=== PATIENT | male | born 1970 | race Caucasian/White ===

== ENCOUNTER 2024-07-14 09:05 | Observation (INO) | payer SELFPAY ==
[2024-07-14 09:47] LABS: PT Prothrombin Time 10.6 SECONDS (10-13.0); Protime INR 0.93
[2024-07-14] MEDS ORDERED: THIAMINE 200 MG/2 ML INJ ONE ×2 (09:48→10:43)
[2024-07-14] MEDS ORDERED: FOLIC ACID 5 MG/ML VIAL ONE (09:49)
[2024-07-14] MEDS ORDERED: NA CHLORIDE 0.9% 1,000 ML ONE (09:50)
[2024-07-14 10:03] LABS: ALT/SGPT 79 U/L (16-61); AST/SGOT 63 U/L (15-37); Albumin 4.1 g/dL (3.4-5.0); Alkaline Phosphatase 65 U/L (45-117); BUN Blood Urea Nitrogen 10 mg/dL (7-18); Bicarbonate 26 mEq/L (21-32); Bilirubin Total 0.2 mg/dL (0.2-1.0); Globulin 4.1 g/dL (2.3-3.5); Glomerular Filtration Rate 92 ml/min (=/>90); Glucose Level 119 mg/dL (74-106); Lipase 30 U/L (13-75); Magnesium 1.8 mg/dL (1.6-2.4); NT PRO-BNP 34 pg/mL (<125); Protein, Total 8.2 g/dL (6.4-8.2); Sodium Level 137 mEq/L (136-145); Troponin High Sensitivity 5.2 pg/mL (<58.9)
[2024-07-14 10:06] LABS: Bilirubin Direct < 0.2 mg/dL (0-0.2)
--- NOTE | 2024-07-14 10:06 | RAD REPORT ---
EXAMINATION: ONE VIEW CHEST XR CLINICAL INDICATION: Male, 53 years old.,CHEST PAIN TECHNIQUE: Frontal chest projection is submitted. Examination is limited by patient positioning and t echnique. COMPARISON: No prior exam. FINDINGS: The lungs are well inflated and clear apart from mild left basilar atelectasis. No pneumothorax or s izable effusion. The heart is normal in size. Mediastinal contours are unremarkable. Surgical clips in the left axilla and probably left breast. IMPRESSION: No acute intrathoracic abnormalities.
--- NOTE | 2024-07-14 10:10 | RAD REPORT ---
EXAM: CT Head Brain Wo Cont HISTORY: MENTAL STATUS CHANGE COMPARISON: None TECHNIQUE: Multiple contiguous axial images were obtained for a CT of the brain without contrast. Sag ittal and coronal reformats were performed. One or more of the following dose reduction techniques were used: Automated exposure control, adjus tment of the mA and kV according to patient size, and iterative reconstruction. Unless otherwise specified, incidental findings do not require dedicated imaging follow-up. FINDINGS: No evidence of hydrocephalus, intracranial hemorrhage, or extra-axial fluid collection. The brain is normal in morphology. The calvarium is intact. The visualized paranasal sinuses and mastoid air cells are essentially clear . IMPRESSION: No evidence of acute intracranial abnormality.
[2024-07-14 10:19] LABS: Absolute Eosinophils 0.2 K/uL (0-0.5); Absolute Lymphocytes (CBC) 0.7 K/uL (0.7-4.9); Absolute Monocytes 0.5 K/uL (0.1-1.3); Absolute Neutrophil 3.1 K/uL (1.8-8.0); Basophils % 0.7 % (0-1.3); Eosinophils % 4.6 % (0-4.4); Hematocrit 36.9 % (39.6-49.0); Hemoglobin 12.6 g/dL (13.6-17.9); MCH 30.3 pg (27.0-35.0); MCHC 34.2 g/dL (32.0-36.0); MCV 88.7 fL (80-100); MPV 7.3 fL (7.6-11.3); Monocytes % 10.7 % (3.3-12.3); Nucleated Red Blood Cells % 0.1 % (0-0); Platelets 140 thou/uL (152-406); RBC Red Blood Cell Count 4.16 M/uL (4.33-5.43); Red Cell Distribution Width 15.5 % (12.1-15.2)
--- NOTE | 2024-07-14 10:36 | EDPHYS ---
Physician Documentation [facility] Name: Mike Rodriges Age: 53 yrs Sex: Male : 1970 Arrival Date: 07/14/2024 Time: 09:05 Bed 3 Private MD: ED Physician Evans Mahajan HPI: 07/14 10:27 This 53 yrs old Male presents to ER via Ambulatory with complaints of Doesn't carmen Feel Right, Feeling lightheaded. 10:27 The patient or guardian reports chest pain that is located primarily in the substernal carmen area. Onset: 2 day(s) ago. The pain does not radiate. Associated signs and symptoms: Pertinent positives: dizziness, lightheadedness, nausea, shortness of breath. The chest pain is described as aching. Modifying factors: The symptoms are alleviated by nothing. the symptoms are aggravated by activity, movement. Severity of pain: At its worst the pain was mild in the emergency department the pain has resolved and did so just prior to arrival. The patient has experienced similar episodes in the past, a few times. Historical: - Allergies: 09:09 NKDA; aa5 - PMHx: 09:09 Hypertension; Anxiety; aa5 - PSHx: 09:09 Right leg; Back sx; aa5 - Immunization history:: Adult Immunizations unknown. - Infectious Disease History:: Denies. - Social history:: Smoking status: Patient denies any tobacco usage or history of. ROS: 10:28 Constitutional: Negative for fever, chills, and weight loss, Eyes: Negative for injury, carmen pain, redness, and discharge, ENT: Negative for injury, pain, and discharge, Neck: Negative for injury, pain, and swelling, Respiratory: Negative for shortness of breath, cough, wheezing, and pleuritic chest pain, Abdomen/GI: Negative for abdominal pain, nausea, vomiting, diarrhea, and constipation, Back: Negative for injury and pain, : Negative for injury, bleeding, discharge, and swelling, MS/Extremity: Negative for injury and deformity, Skin: Negative for injury, rash, and discoloration, Psych: Negative for depression, anxiety, suicide ideation, homicidal ideation, and hallucinations, Allergy/Immunology: Negative for hives, rash, and allergies, Endocrine: Negative for neck swelling, polydipsia, polyuria, polyphagia, and marked weight changes, 10:28 Cardiovascular: Positive for chest pain, palpitations, 10:28 Neuro: Positive for weakness, Exam: 10:28 Constitutional: This is a well developed, well nourished patient who is awake, alert, carmen and in no acute distress. Head/Face: Normocephalic, atraumatic. Eyes: Pupils equal round and reactive to light, extra-ocular motions intact. Lids and lashes normal. Conjunctiva and sclera are non-icteric and not injected. Cornea within normal limits. Periorbital areas with no swelling, redness, or edema. ENT: Nares patent. No nasal discharge, no septal abnormalities noted. Tympanic membranes are normal and external auditory canals are clear. Oropharynx with no redness, swelling, or masses, exudates, or evidence of obstruction, uvula midline. Mucous membranes moist. Neck: Trachea midline, no thyromegaly or masses palpated, and no cervical lymphadenopathy. Supple, full range of motion without nuchal rigidity, or vertebral point tenderness. No Meningismus. Chest/axilla: Normal chest wall appearance and motion. Nontender with no deformity. No lesions are appreciated. Respiratory: Lungs have equal breath sounds bilaterally, clear to auscultation and percussion. No rales, rhonchi or wheezes noted. No increased work of breathing, no retractions or nasal flaring. Abdomen/GI: Soft, non-tender, with normal bowel sounds. No distension or tympany. No guarding or rebound. No evidence of tenderness throughout. Back: No spinal tenderness. No costovertebral tenderness. Full range of motion. Male : Normal genitalia with no discharge or lesions. Skin: Warm, dry with normal turgor. Normal color with no rashes, no lesions, and no evidence of cellulitis. MS/ Extremity: Pulses equal, no cyanosis. Neurovascular intact. Full, normal range of motion., bilateral aka Neuro: Awake and alert, GCS 15, oriented to person, place, time, and situation. Cranial nerves II-XII grossly intact. Motor strength 5/5 in all extremities. Sensory grossly intact. Cerebellar exam normal. Normal gait. 10:28 Cardiovascular: Rate: tachycardic, actual rate is 104 bpm, Rhythm: regular, Pulses: no pulse deficits are appreciated, Heart sounds: normal, Edema: is not appreciated, JVD: is not appreciated, 10:28 ECG was reviewed by the Attending Physician. 10:28 Musculoskeletal/extremity: Extremities: all appear grossly normal, with no appreciated pain with palpation, ROM: no acute changes, intact in all extremities, full active range of motion, full passive range of motion, Circulation is intact in all extremities. Sensation intact. Compartment Syndrome exam of affected extremity: is normal. Weight bearing: able to fully bear weight, 10:28 Psych: Behavior/mood is anxious, Affect is calm, Oriented to person, place, time, Patient has no thoughts/intents to harm self or others. Judgement / Insight is normal. Memory is normal. Vital Signs: 09:09 BP 217 / 134; Pulse 106; Resp 18 S; Temp 97.5(TE); Pulse Ox 98% on R/A; Weight 86.18 kg aa5 (R); Height 5 ft. 11 in. (R); 10:13 BP 183 / 124; Pulse 104; Resp 17; Pulse Ox 97% on R/A; ap3 11:37 BP 169 / 98; Pulse 94; Pulse Ox 96% on R/A; ld1 09:09 Body Mass Index 26.50 (86.18 kg, 180.34 cm) aa5 NIH Stroke Scale Scores: 10:28 NIHSS Score: 0 carmen MDM: 09:10 Medical Screening Exam initiated carmen 10:32 Differential diagnosis: abnormal EKG, acute myocardial infarction, acute pericarditis, carmen anxiety, chest wall pain, congestive heart failure cholecystitis, Cholelithiasis costochondritis, esophagitis, gastritis, myocarditis, pancreatitis, peptic ulcer disease, pericarditis, pleurisy, pneumonia, pneumothorax, pulmonary embolus, stable angina, thoracic aortic disection, unstable angina. HEART Score: History: Slightly Suspicious (0), ECG: Non specific repolarization disturbance / LBTB / PM (1), Age: > 45 and < 65 years (1), Risk Factors: > or = 3 Risk factors for atherosclerotic disease (2), [Hypertension] [+ Family HX] Troponin: < or = 1 x Normal Limit (0), Total Score = 4. The patient was given aspirin in the Emergency Department. Data reviewed: vital signs, nurses notes, EMS record, lab test result(s), EKG, radiologic studies, plain films. Consideration of Admission/Observation Patient was admitted/placed on observation. Escalation of care including admission/observation considered. I considered the following discharge prescriptions or medication management in the emergency department Medications were administered in the Emergency Department. See MAR. Independent interpretation of the following test(s) in the Emergency Department EKG: See my EKG interpretation above. Test considered but Not performed: Ultrasound no 2 d echo. 07/14 09:12 Order name: Basic Metabolic Panel; Complete Time: 10: [facility] 07/14 09:12 Order name: CBC with Diff; Complete Time: : [facility] 07/14 09:12 Order name: LFT's; Complete Time: : [facility] 07/14 09:12 Order name: Magnesium; Complete Time: : [facility] 07/14 09:12 Order name: NT PRO-BNP; Complete Time: : [facility] 07/14 09:12 Order name: PT-INR; Complete Time: : [facility] 07/14 09:12 Order name: Troponin HS; Complete Time: : [facility] 07/14 09:12 Order name: Lipase; Complete Time: : [facility] 07/14 09:12 Order name: Urinalysis w/ reflexes [facility] 07/14 09:12 Order name: UDS [facility] 07/14 11:36 Order name: Thyroid Stimulating Hormone [facility] 07/14 11:36 Order name: CBC with Automated Diff [facility] 07/14 11:36 Order name: CBC with Automated Diff [facility] 07/14 11:36 Order name: CBC with Automated Diff [facility] 07/14 11:36 Order name: CBC with Automated Diff [facility] 07/14 11:36 Order name: Comprehensive Metabolic Panel [facility] 07/14 11:36 Order name: Comprehensive Metabolic Panel [facility] 07/14 11:36 Order name: Comprehensive Metabolic Panel [facility] 07/14 11:36 Order name: Comprehensive Metabolic Panel [facility] 07/14 11:36 Order name: Creatine Phosphokinase [facility] 07/14 11:36 Order name: Creatine Phosphokinase [facility] 07/14 11:36 Order name: Troponin High Sensitivity [facility] 07/14 11:36 Order name: Troponin High Sensitivity [facility] 07/14 11:36 Order name: Troponin High Sensitivity [facility] 07/14 09:12 Order name: XRAY Chest (1 view); Complete Time: 10: [facility] 07/14 09:12 Order name: CT Head Brain wo Cont; Complete Time: 10: [facility] 07/14 10:58 Order name: Echo with Doppler [facility] 07/14 09:12 Order name: Cardiac monitoring; Complete Time: 09:37 [facility] 07/14 09:12 Order name: EKG - Nurse/Tech; Complete Time: 09:37 [facility] 07/14 09:12 Order name: IV Saline Lock; Complete Time: 09:37 [facility] 07/14 09:12 Order name: Labs collected and sent; Complete Time: 09: [facility] 07/14 09:12 Order name: O2 Per Protocol; Complete Time: 09:37 [facility] 07/14 09:12 Order name: O2 Sat Monitoring; Complete Time: 09:37 [facility] 07/14 09:53 Order name: Labs - recollect needed: recollect the purple top; Complete Time: 10:10 eb EC:28 Rate is 103 beats/min. Rhythm is regular. QRS [place] is Normal. TN interval is normal. carmen QRS interval is normal. QT interval is normal. No Q waves. T waves are Normal. No ST changes noted. Clinical impression: Sinus tachycardia. Interpreted by me. Reviewed by me. Administered Medications: 10:10 Drug: NS 0.9% IV 500 ml 500 ml IV at 1 bolus once; to be given as a bolus over 30 ap3 minutes Volume: 500 ml; Route: IV; Rate: 1 bolus; Site: left antecubital; 11:40 Follow up: IV Status: Completed infusion; IV Intake: 500ml ap3 10:10 Drug: foLIC Acid IVPB 1 mg IVPB once Route: IVPB; Site: left antecubital; ap3 11:40 Follow up: IV Status: Completed infusion ap3 10:10 Drug: Thiamine IV 100 mg IV at per protocol once Route: IV; Rate: per protocol; Site: ap3 left antecubital; 11:40 Follow up: IV Status: Completed infusion ap3 10:52 Drug: Thiamine IV 100 mg IV at bolus once Route: IV; Rate: bolus; Site: left ld1 antecubital; 11:03 Follow up: Response: No adverse reaction; IV Status: Completed infusion ap3 10:52 Drug: Labetalol IV 20 mg IV at per protocol once over 2 mins Route: IV; Rate: per ld1 protocol; Infused Over: 2 mins; Site: left antecubital; 11:03 Follow up: Response: No adverse reaction; Blood pressure is lowered ap3 11:41 Follow up: Response: No adverse reaction; Blood pressure is lowered; IV Status: ap3 Completed infusion 10:52 Drug: Labetalol PO 100 mg PO once Route: PO; ld1 11:04 Follow up: Response: No adverse reaction ap3 10:52 Drug: Famotidine IVP 20 mg IVP once; dilute with 10 mL 0.9% NaCl; give over 2 minutes ld1 Route: IVP; Site: left antecubital; 11:03 Follow up: Response: No adverse reaction ap3 10:52 Drug: Magnesium Sulfate IVPB 2 grams IVPB once over 2 hrs Route: IVPB; Infused Over: 2 ld1 hrs; Site: left antecubital; 14:22 Follow up: IV Status: Completed infusion ap3 10:52 Drug: Norvasc PO 10 mg PO once Route: PO; ld1 11:03 Follow up: Response: No adverse reaction ap3 10:52 Drug: Aspirin PO Chewable Tablet 162 mg PO once Route: PO; ld1 11:03 Follow up: Response: No adverse reaction ap3 11:01 Drug: Ativan IVP 2 mg IVP once Route: IVP; Site: left antecubital; ap3 14:22 Follow up: Response: No adverse reaction; Anxiety decreased ap3 14:23 Not Given (banana bag orderedd): ns 0.9% 500 ml 500 ml IV at 125 ml/hr once; to be ap3 given as a bolus over 30 minutes 14:25 Not Given ([employer] orderss): [id number] mg IV at per protocol once ap3 14:37 Drug: Banana Bag - (Multivitamin IV 1 amp, NS 0.9% IV 1000 ml, Thiamine IV 100 mg, ap3 foLIC Acid IVPB 1 mg) IV at 125 ml/hr once Route: IV; Rate: 125 ml/hr; Site: left antecubital; 14:53 Follow up: IV Status: Infusion continued upon admission ap3 Disposition Summary: 07/14/24 10:35 Hospitalization Ordered Notes: Hospitalization Status: Observation carmen Provider: Mo Beltran carmen Condition: Fair carmen Problem: new carmen Symptoms: have improved carmen Bed/Room Type: Standard carmen Location: Telemetry/MedSurg (observation)(07/14/24 15:55) eb Room Assignment: 405(07/14/24 16:07) eb Diagnosis - Chest pain, unspecified carmen - Alcohol abuse carmen - Essential (primary) hypertension carmen - Dizziness and giddiness carmen Forms: - Medication Reconciliation Form carmen - SBAR form carmen - Leadership Thank You Letter carmen NIH Stroke Scale - NIH Stroke Score Date: 07/14/2024 Time: 10:28 Total Score = 0 10. Dysarthria (speech clarity - read or repeat words) - 0(Normal) 11. Extinction and Inattention (visual/tactile/auditory/spatial/personal) - 0(No abnormality) 1a. Level of Consciousness (LOC) - 0(Alert) 1b. Level of Consciousness (LOC) (Month \T\ Age) - 0(Both) 1c. LOC Commands (Open \T\ Closes Eyes/Office Messenger) - 0(Both) 2. Best Gaze (Lateral Gaze Paresis) - 0(Normal) 3. Visual Field Loss - 0(No visual loss) 4. Facial Palsy - 0(Normal) 5a. Left Arm: Motor (10-second hold) - 0(No drift) 5b. Right Arm: Motor (10-second hold) - 0(No drift) 6a. Left Leg: Motor (5-second hold - always test supine) - 0(No drift) 6b. Right Leg: Motor (5-second hold - always test supine) - 0(No drift) 7. Limb Ataxia (finger/nose \T\ heel/barros - test with eyes open) - 0(Absent) 8. Sensory Loss (pinprick arms/legs/face) - 0(Normal) 9. Best Language: Aphasia (description/naming/reading) - 0(No aphasia) Initials: carmen Signatures: Dispatcher [employer] EDMS Evans Mahajan MD MD cha Calderon, Audri, RN RN aa5 Lenora Limon RN RN ap3 Jennifer Rivero Lauren, RN RN ld1 Corrections: (The following items were deleted from the chart) 09:13 09:13 BASIC METABOLIC PANEL+C.LAB.BRZ ordered. EDMS EDMS 09:13 09:13 CBC+H.LAB.BRZ ordered. EDMS EDMS 09:13 09:13 HEPATIC FUNCTION+C.LAB.BRZ ordered. EDMS EDMS 09:13 09:13 MAGNESIUM+C.LAB.BRZ ordered. EDMS EDMS 09:13 09:13 PROBNP+C.LAB.BRZ ordered. EDMS EDMS 09:13 09:13 PROTIME (+INR)+COAG.LAB.BRZ ordered. EDMS EDMS 09:13 09:13 Troponin High Sensitivity+C.LAB.BRZ ordered. EDMS EDMS 09:13 09:13 LIPASE+C.LAB.BRZ ordered. EDMS EDMS 09:13 09:13 Urinalysis+U.LAB.BRZ ordered. EDMS EDMS 09:13 09:13 URINE DRUG SCREEN+UC.LAB.BRZ ordered. EDMS EDMS 09:13 09:13 Chest Single View+RAD.RAD.BRZ ordered. EDMS EDMS 09:13 09:13 Head Brain Wo Cont+CT.RAD.BRZ ordered. EDMS EDMS 12:58 10:35 Telemetry/MedSurg (observation) carmen eb 12:58 10:35 carmen eb 15:55 12:58 BR ER HOLD eb eb 15:55 12:58 ERHOLD- eb eb 16:07 15:55 420 eb eb
--- NOTE | 2024-07-14 10:36 | ER ---
Nurse's Notes [facility] Name: Mike Rodriges Age: 53 yrs Sex: Male : 1970 Arrival Date: 07/14/2024 Time: 09:05 Bed 3 Private MD: Diagnosis: Chest pain, unspecified;Alcohol abuse;Essential (primary) hypertension;Dizziness and giddiness Presentation: 07/14 09:09 Chief complaint: Patient states: sent here by PCP, pt states "I just feel like I am aa5 going to pass out", pt reports nausea. 09:09 Coronavirus screen: nausea. Ebola Screen: Patient denies travel to an Ebola-affected [facility] area in the 21 days before illness onset. Initial Sepsis Screen: Does the patient meet any 2 criteria? HR > 90 bpm. Does the patient have a suspected source of infection? No. Patient's initial sepsis screen is negative. Risk Assessment: Do you want to hurt yourself or someone else? Patient reports no desire to harm self or others. Onset of symptoms was July 2024. 09:09 Acuity: ERICK 2 aa5 09:09 Method Of Arrival: Ambulatory aa5 Historical: - Allergies: 09:09 NKDA; aa5 - PMHx: 09:09 Hypertension; Anxiety; aa5 - PSHx: 09:09 Right leg; Back sx; aa5 - Immunization history:: Adult Immunizations unknown. - Infectious Disease History:: Denies. - Social history:: Smoking status: Patient denies any tobacco usage or history of. Screenin:44 Abuse screen: Denies threats or abuse. Nutritional screening: No deficits noted. ap3 Tuberculosis screening: No symptoms or risk factors identified. 14:21 [facility] ED Fall Risk Assessment (Adult) History of falling in the last 3 months, ap3 including since admission Yes- single mechanical fall (1 pt) Confusion or Disorientation No (0 pts) Intoxicated or Sedated No (0 pts) Impaired Gait Yes (1 pt) Mobility Assist Device Used No (0 pt) Altered Elimination No (0 pt) Score/Fall Risk Level 0 - 2 = Low Risk Oriented to surroundings, Maintained a safe environment, Educated pt \\T\\ family on fall prevention, incl call for assistance when getting out of bed, Assessed \\T\\ reinforced patient's understanding of fall precautions, Hourly rounding (assess needs \\T\\ fall precautionary measures) done, Used ambulatory aids as needed (educated on \\T\\ assisted with). Assessment: 09:42 General: Appears comfortable, Behavior is cooperative, appropriate for age, anxious. ap3 Pain: Denies pain. Neuro: Level of Consciousness is awake, alert, obeys commands, Oriented to person, place, time, situation, Appropriate for age. Cardiovascular: Reports "feeling like my heart is going to beat out of my chest". Respiratory: Airway is patent Respiratory effort is even, unlabored, Respiratory pattern is regular, symmetrical. Vital Signs: 09:09 BP 217 / 134; Pulse 106; Resp 18 S; Temp 97.5(TE); Pulse Ox 98% on R/A; Weight 86.18 kg aa5 (R); Height 5 ft. 11 in. (R); 10:13 BP 183 / 124; Pulse 104; Resp 17; Pulse Ox 97% on R/A; ap3 11:37 BP 169 / 98; Pulse 94; Pulse Ox 96% on R/A; ld1 09:09 Body Mass Index 26.50 (86.18 kg, 180.34 cm) aa5 NIH Stroke Scale Scores: 10:28 NIHSS Score: 0 [facility] ED Course: 09:08 Patient arrived in ED. cj3 09:09 Arm band placed on Patient placed in an exam room, on a stretcher. aa5 09:10 Evans Mahajan MD is Attending Physician. [facility] 09:21 Triage completed. aa5 09:36 Lenora Limon, RN is Primary Nurse. ap3 09:36 Initial lab(s) drawn, by [facility], sent to lab. EKG done, by ED staff, reviewed by Evans Mahajan MD. Inserted saline lock: 20 gauge in left antecubital area, using aseptic technique. Blood collected. Flushed with 10 mL NS. 09:37 Patient has correct armband on for positive identification. Placed in gown. Bed in low ap3 position. Call light in reach. Side rails up X2. Client placed on continuous cardiac and pulse oximetry monitoring. NIBP monitoring applied. rn document improvement on. Pulse ox on. NIBP on. Door closed. Noise minimized. Warm blanket given. 09:50 XRAY Chest (1 view) In Process Unspecified. EDMS 10:02 CT Head Brain wo Cont In Process Unspecified. EDMS 10:34 Mo Beltran MD is Hospitalizing Provider. [facility] 14:21 Provided Education on: need for admission. ap3 14:21 No provider procedures requiring assistance completed. Patient admitted, IV remains in ap3 place. Administered Medications: 10:10 Drug: NS 0.9% IV 500 ml 500 ml IV at 1 bolus once; to be given as a bolus over 30 ap3 minutes Volume: 500 ml; Route: IV; Rate: 1 bolus; Site: left antecubital; 11:40 Follow up: IV Status: Completed infusion; IV Intake: 500ml ap3 10:10 Drug: foLIC Acid IVPB 1 mg IVPB once Route: IVPB; Site: left antecubital; ap3 11:40 Follow up: IV Status: Completed infusion ap3 10:10 Drug: Thiamine IV 100 mg IV at per protocol once Route: IV; Rate: per protocol; Site: ap3 left antecubital; 11:40 Follow up: IV Status: Completed infusion ap3 10:52 Drug: Thiamine IV 100 mg IV at bolus once Route: IV; Rate: bolus; Site: left ld1 antecubital; 11:03 Follow up: Response: No adverse reaction; IV Status: Completed infusion ap3 10:52 Drug: Labetalol IV 20 mg IV at per protocol once over 2 mins Route: IV; Rate: per ld1 protocol; Infused Over: 2 mins; Site: left antecubital; 11:03 Follow up: Response: No adverse reaction; Blood pressure is lowered ap3 11:41 Follow up: Response: No adverse reaction; Blood pressure is lowered; IV Status: ap3 Completed infusion 10:52 Drug: Labetalol PO 100 mg PO once Route: PO; ld1 11:04 Follow up: Response: No adverse reaction ap3 10:52 Drug: Famotidine IVP 20 mg IVP once; dilute with 10 mL 0.9% NaCl; give over 2 minutes ld1 Route: IVP; Site: left antecubital; 11:03 Follow up: Response: No adverse reaction ap3 10:52 Drug: Magnesium Sulfate IVPB 2 grams IVPB once over 2 hrs Route: IVPB; Infused Over: 2 ld1 hrs; Site: left antecubital; 14:22 Follow up: IV Status: Completed infusion ap3 10:52 Drug: Norvasc PO 10 mg PO once Route: PO; ld1 11:03 Follow up: Response: No adverse reaction ap3 10:52 Drug: Aspirin PO Chewable Tablet 162 mg PO once Route: PO; ld1 11:03 Follow up: Response: No adverse reaction ap3 11:01 Drug: Ativan IVP 2 mg IVP once Route: IVP; Site: left antecubital; ap3 14:22 Follow up: Response: No adverse reaction; Anxiety decreased ap3 14:23 Not Given (Ateoana bag orderedd): ns 0.9% 500 ml 500 ml IV at 125 ml/hr once; to be ap3 given as a bolus over 30 minutes 14:25 Not Given ([employer] orderss): [id number] mg IV at per protocol once ap3 14:37 Drug: Banana Bag - (Multivitamin IV 1 amp, NS 0.9% IV 1000 ml, Thiamine IV 100 mg, ap3 foLIC Acid IVPB 1 mg) IV at 125 ml/hr once Route: IV; Rate: 125 ml/hr; Site: left antecubital; 14:53 Follow up: IV Status: Infusion continued upon admission ap3 Medication: 14:22 VIS not applicable for this client. ap3 Intake: 11:40 IV: 500ml; Total: 500ml. ap3 Outcome: 10:35 Decision to Hospitalize by Provider. carmen 14:21 Admitted to ER Hold. Please see [employer] for further documentation. ap3 14:21 Condition: good 14:21 Discharge instructions given to patient, Instructed on the need for admit, 16:31 Patient left the ED. ld1 NIH Stroke Scale - NIH Stroke Score Date: 07/14/2024 Time: 10:28 Total Score = 0 10. Dysarthria (speech clarity - read or repeat words) - 0(Normal) 11. Extinction and Inattention (visual/tactile/auditory/spatial/personal) - 0(No abnormality) 1a. Level of Consciousness (LOC) - 0(Alert) 1b. Level of Consciousness (LOC) (Month \\T\\ Age) - 0(Both) 1c. LOC Commands (Open \\T\\ Closes Eyes/Grid Molder) - 0(Both) 2. Best Gaze (Lateral Gaze Paresis) - 0(Normal) 3. Visual Field Loss - 0(No visual loss) 4. Facial Palsy - 0(Normal) 5a. Left Arm: Motor (10-second hold) - 0(No drift) 5b. Right Arm: Motor (10-second hold) - 0(No drift) 6a. Left Leg: Motor (5-second hold - always test supine) - 0(No drift) 6b. Right Leg: Motor (5-second hold - always test supine) - 0(No drift) 7. Limb Ataxia (finger/nose \\T\\ heel/barros - test with eyes open) - 0(Absent) 8. Sensory Loss (pinprick arms/legs/face) - 0(Normal) 9. Best Language: Aphasia (description/naming/reading) - 0(No aphasia) Initials: carmen Signatures: Dispatcher [employer] Evans Chaidez MD MD cha Calderon, Audri, RN RN aa5 Lenora Limon RN RN ap3 Ines Parker RN RN ld1 Shakila Porter 3
[2024-07-14] MEDS ORDERED: LORazepam 2 MG/ML VIAL ONE (10:42)
[2024-07-14] MEDS ORDERED: LABETALOL HCL 100 MG TAB ONE (10:42)
[2024-07-14] MEDS ORDERED: AMLODIPINE 10 MG TAB ONE (10:43)
[2024-07-14] MEDS ORDERED: ASPIRIN 81 MG CHEWABLE TABLET ONE (10:43)
[2024-07-14] MEDS ORDERED: LABETALOL 20 MG/4ML SYRINGE IV ONE (10:43)
[2024-07-14] MEDS ORDERED: FAMOTIDINE 20 MG/2 ML VIAL IV ONE (10:43)
[2024-07-14] MEDS ORDERED: Magnesium Sulfate 2gm IVPB 2 G/50 ML BAG IV ONE (10:44)
[2024-07-14] MEDS ORDERED: LORazepam 2 MG/ML VIAL IV PRN (11:29)
[2024-07-14] MEDS ORDERED: ONDANSETRON 4 MG/2 ML VIAL IV PRN (11:29)
[2024-07-14] MEDS: ENOXAPARIN 40 MG/0.4 ML SQ SCH (12:00)
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
--- NOTE | 2024-07-14 13:27 | ECHO ---
HEIGHT: 5 ft 11 in WEIGHT: 189 lb 15.91 oz DATE OF STUDY: 07/14/[address]: Mart Dennis NP 2-DIMENSIONAL: YES M.MODE: YES DOPPLER: YES COLOR FLOW: YES TDS: PORTABLE: YES DEFINITY: BUBBLE STUDY: DIAGNOSIS: HYPERTENSION URGENCY CARDIAC HISTORY: CATHERIZATION: NO SURGERY: NO PROSTHETIC VALVE: NO PACEMAKER: NO MEASUREMENTS (cm) DIASTOLIC (NORMALS) SYSTOLIC (NORMALS) IVSd 0.9 (0.6-1.2) LA Diam 3.0 (1.9-4.0) LVEF 60-65% LVIDd 4.1 (3.5-5.7) LVIDs 2.6 (2.0-3.5) %FS 37% LVPWd 1.0 (0.6-1.2) Ao Diam 2.7 (2.0-3.7) 2 DIMENSIONAL ASSESSMENT: RIGHT ATRIUM: NORMAL LEFT ATRIUM: NORMAL RIGHT VENTRICLE: NORMAL LEFT VENTRICLE: NORMAL TRICUSPID VALVE: NORMAL MITRAL VALVE: NORMAL PULMONIC VALVE: NORMAL AORTIC VALVE: NORMAL PERICARDIAL EFFUSION: NONE AORTIC ROOT: NORMAL LEFT VENTRICULAR WALL MOTION: NORMAL DOPPLER/COLOR FLOW: NORMAL COMMENTS: 1. NORMAL LEFT VENTRICULAR SYSTOLIC FUNCTION, EJECTION FRACTION 60-65%, NORMAL WALL MOTION 2. NORMAL DIASTOLIC FUNCTION TECHNOLOGIST: RON DANIELLE
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
[2024-07-14 14:04] VITALS: BMI 26.4
[2024-07-14] MEDS: FOLIC ACID 1 MG, MULTIVITAMINS INJ 10 ML, THIAMINE HCL 100 MG in NA CHLORIDE 0.9% 1,000 ML IV ONE (14:16)
[2024-07-14] MEDS ORDERED: ENOXAPARIN 40 MG/0.4 ML SQ ONE (15:35)
[2024-07-14] MEDS: METOPROLOL TAR 25 MG TAB PO SCH (18:03)
[2024-07-14] MEDS: ALPRAZOLAM 0.5 MG TABLET PO PRN (18:03)
[2024-07-14 18:39] LABS: Specific Gravity 1.014 (1.005-1.030); Urine Bilirubin NEGATIVE (Negative); Urine Blood Negative (Negative); Urine Clarity Clear (Clear); Urine Color Colorless (Yellow); Urine Glucose NEGATIVE (Negative); Urine Ketones NEGATIVE (Negative); Urine Microscopic Reflex YN NO UMIC; Urine Nitrite NEGATIVE (Negative); Urine Protein NEGATIVE (Negative); Urine Urobilinogen Normal (Normal); Urine pH 6.5 (5.0-7.0)
[2024-07-14 18:52] LABS: Barbiturates NEGATIVE (NEGATIVE); Benzodiazepines POSITIVE (NEGATIVE); Cocaine NEGATIVE (NEGATIVE); METHAMPHETAM NEGATIVE (NEGATIVE); Methadone NEGATIVE (NEGATIVE); Opiates NEGATIVE (NEGATIVE); Phencyclidine NEGATIVE (NEGATIVE); THC Cannibis NEGATIVE (NEGATIVE)
[2024-07-14] MEDS: ACETAMINOPHEN 325 MG TABLET PO PRN (22:47)
[2024-07-14] MEDS: HYDRALAZINE HCL 20 MG/ML VIAL IV PRN (23:38)
[2024-07-15 01:46] VITALS: O2SAT 97
[2024-07-15 07:00] LABS: Absolute Eosinophils 0.5 K/uL (0-0.5); Absolute Lymphocytes (CBC) 0.9 K/uL (0.7-4.9); Absolute Monocytes 0.6 K/uL (0.1-1.3); Absolute Neutrophil 3.8 K/uL (1.8-8.0); Basophils % 0.8 % (0-1.3); Eosinophils % 8.1 % (0-4.4); Hematocrit 38.8 % (39.6-49.0); Hemoglobin 13.4 g/dL (13.6-17.9); Lymphocytes % 15.4 % (15.3-44.8); MCH 30.5 pg (27.0-35.0); MCHC 34.5 g/dL (32.0-36.0); MCV 88.4 fL (80-100); Monocytes % 11.1 % (3.3-12.3); Neutrophils % 64.6 % (41.7-73.7); Platelets 144 thou/uL (152-406); RBC Red Blood Cell Count 4.39 M/uL (4.33-5.43); Red Cell Distribution Width 15.4 % (12.1-15.2)
[2024-07-15 07:21] LABS: Albumin 3.7 g/dL (3.4-5.0); Anion Gap 12.5 mEq/L (5.0-15.0); Bilirubin Total 0.7 mg/dL (0.2-1.0); Globulin 3.7 g/dL (2.3-3.5); Potassium 3.5 mEq/L (3.5-5.1); Protein, Total 7.4 g/dL (6.4-8.2); Troponin High Sensitivity 5.6 pg/mL (<58.9)
[2024-07-15 07:24] LABS: Thyroid Stimulating Hormone 6.26 uIU/mL (0.358-3.740)
[2024-07-15] MEDS: AMLODIPINE 10 MG TAB PO SCH (08:34)
[2024-07-15] MEDS: LOSARTAN POTASSIUM 50 MG TABLET PO SCH (08:34)
[2024-07-15 12:56] VITALS: BP 140/89; TEMP 97.7
--- NOTE | 2024-07-15 14:29 | P.DS ---
Admission Date: 07/14/24 Discharge Date: 07/15/24 Disposition: ROUTINE DISCHARGE Discharge Condition: GOOD Reason for Admission: Hypertensive urgency Brief History of Present Illness: Diagnosis Hypertensive urgency/underlying primary hypertension Palpitations/near syncope Alcohol use disorder Anxiety HPI 07/14/2024 53-year-old male with history of alcohol use disorder, anxiety, hypertension presents to the emergency department with chief complaints of lightheadedness, palpitations, "shakiness". He reports he is feeling unwell this morning while driving to his primary care doctor's office, upon arrival there his blood pressure was markedly elevated and he was feeling quite unwell, he was referred to the emergency department for further evaluation. He reports that he has been taking his medications as previously prescribed, he does drink heavily but this has not changed, he did drink last night which would be normal for him. Patient was evaluated in the emergency department his initial blood pressure was in the 200s/130 his labs were significant for hemoglobin of 12.6 hematocrit 36.9 platelet count 140 AST 63 ALT 79 initial high sensitive troponin 5.2 EKG without STEMI criteria CT head was negative for acute findings chest x-ray was also unremarkable. Patient was unsure of what medications he takes, I called his pharmacy for his blood pressure he takes losartan 100 mg by mouth daily as well as amlodipine 10 mg daily. ED better wishes to admit patient under observation for hypertensive urgency, palpitations/near syncope Hospital Course: Physical Exam General: Alert, In no apparent distress, Oriented x3 HEENT: Atraumatic, PERRLA Neck: Supple, 2+ carotid pulse no bruit, No LAD Respiratory: Clear to auscultation bilaterally, Normal air movement Cardiovascular: Regular rate/rhythm, Normal S1 S2 Gastrointestinal: Normal bowel sounds, No tenderness Musculoskeletal: No tenderness Integumentary: No rashes Neurological: Normal gait, Normal speech, Normal strength at 5/5 x4 extr Vital Signs/Physical Exam: Temp Pulse Resp BP Pulse Ox 97.7 F 76 16 140/89 98 07/15/24 12:00 07/15/24 12:00 07/15/24 12:00 07/15/24 12:00 07/15/24 12:00 Laboratory Data at Discharge: WBC 5.90 thou/uL (4.3-10.9) 07/15/24 06:30 Hgb 13.4 g/dL (13.6-17.9) L 07/15/24 06:30 Hct 38.8 % (39.6-49.0) L 07/15/24 06:30 Plt Count 144 thou/uL (152-406) L 07/15/24 06:30 PT 10.6 SECONDS (10-13.0) 07/14/24 09:33 INR 0.93 07/14/24 09:33 Sodium 131 mEq/L (136-145) L D 07/15/24 06:30 Potassium 3.5 mEq/L (3.5-5.1) 07/15/24 06:30 BUN 7 mg/dL (7-18) 07/15/24 06:30 Creatinine 0.91 mg/dL (0.70-1.30) 07/15/24 06:30 Glucose 113 mg/dL (74-106) H 07/15/24 06:30 Magnesium 1.8 mg/dL (1.6-2.4) 07/14/24 09:33 Total Bilirubin 0.7 mg/dL (0.2-1.0) 07/15/24 06:30 AST 35 U/L (15-37) 07/15/24 06:30 ALT 61 U/L (16-61) 07/15/24 06:30 Alkaline Phosphatase 63 U/L (45-117) 07/15/24 06:30 Lipase 30 U/L (13-75) 07/14/24 09:33 Home Medications: Alprazolam [Xanax] 1 tab PO TID 07/14/24 Amlodipine [Norvasc*] 1 tab PO DAILY 07/14/24 Losartan Potassium 100 mg PO DAILY 07/14/24 Metoprolol Tartrate [Lopressor*] 25 mg PO BID 6AM 6PM 30 Days #60 tab 07/15/24 New Medications: Metoprolol Tartrate [Lopressor*] 25 mg PO BID 6AM 6PM 30 Days #60 tab Physician Discharge Instructions: 1. Please call and schedule a follow-up appointment with your PCP in 3-5 days - Please follow-up with your PCP for medication refills/adjustments 2. Please call and schedule a follow-up appointment with Dr. Franco in 3-5 days -please check your blood pressure twice daily and keep a record for your doctor to see effectiveness of this new medication -Dr. Franco plans for an event monitor and stress test outpatient 3. Continue heart healthy diet 4. Known activity restrictions 5. Return to the ED if symptoms worsen New medications Metoprolol 25 mg twice daily x 30 days, please check your blood pressure twice daily and keep a record for your doctor to see effectiveness of this new medication Diet: AHA Activity: Ad poly Followup: Nia Giraldo NP [Primary Care Provider] - Lionel Franco MD [ACTIVE - CAN ADMIT] -
--- NOTE | 2024-07-17 10:58 | EKG ---
Test Date: 2024-07-14 Test Time: 09:15:03 Office Auditor: GUNNAR MEASUREMENT RESULTS: Intervals: Rate: 103 MN: 150 QRSD: 90 QT: 354 QTc: 463 [place]: P: 53 MN: 150 QRS: -11 T: 53 INTERPRETIVE STATEMENTS: Sinus tachycardia Otherwise normal ECG No previous ECG available for comparison Electronically Signed On 07-17-24 10:51:01 CDT by Lionel Franco
== END 2024-07-15 15:15 | disposition home or self-care (01) ==
LOC: ER 09:05 → ERHOLD 10:55 → 4TH 16:04
PROVIDERS: ADMIT Hospitalist; ATTEND Hospitalist
DX: I16.0 Hypertensive urgency (principal); F10.99 Alcohol use, unspecified with unspecified alcohol-induced disorder; F41.9 Anxiety disorder, unspecified; I10 Essential (primary) hypertension; R00.2 Palpitations; R55 Syncope and collapse; R07.9 Chest pain, unspecified
CPT/HCPCS: 36415; 70450; 71045; 80048; 80053; 80076; 80307; 81003; 82550; 83690; 83735; 83880; 84439; 84443; 84484; 85025; 85610; 93005; 93306; 96365; 96367; 96368; 96375; 99285; G0378; J0360; J1650; J3411; J3475; J7030